=== PATIENT | female | born 2000 | race Caucasian/White ===

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

== ENCOUNTER 2022-06-10 17:27 | Emergency (ER) | payer BC ==
[~2022-06-10] VITALS: Ht 172.7 cm; Wt 56.7 kg
[2022-06-10] MEDS ORDERED: Amoxicillin500 MG PO (17:57)
[2022-06-10] MEDS ORDERED: PRED20 PO (22:27)
== END 2022-06-10 22:38 | disposition home or self-care (01) ==
LOC: ER 17:27
DX: J03.90 Acute tonsillitis, unspecified (principal); Z79.899 Other long term (current) drug therapy
CPT/HCPCS: 36415; 70491; J1885; J7030; J7512; Q9967

== ENCOUNTER → 2023-10-31 | Outpatient (CLI) | payer BC ==
[~2023-10-31] MED LIST changes: +Amoxicillin500 MG PO; +PRED20 PO
[2023-10-31 14:24] LABS: Bacterial Vaginosis PCR Negative (NEGATIVE); Candida Group, PCR NOT DETECTED (NOT DETECT)
[2023-10-31 14:36] LABS: Candida glabrata-krusei, PCR DETECTED (NOT DETECT)
== END | disposition home or self-care (01) ==
LOC: LAB SHORT 10:48 → LAB 10:48
PROVIDERS: Advanced Practice Midwife
DX: Z01.419 Encounter for gynecological examination (general) (routine) without abnormal findings (principal); N76.0 Acute vaginitis
CPT/HCPCS: 87481; 87661; 87801